=== PATIENT | female | born 1995 | race Caucasian/White ===

== ENCOUNTER → 2018-02-18 | Outpatient (CLI) | payer OTHER ==
--- NOTE | 2018-02-18 17:00 | RAD ---
Renal ultrasound. 02/18/2018 INDICATION: Chronic cystitis. COMPARISON STUDY: None available. Discussion: Sonographic evaluation of the kidneys was performed. Static images are submitted to PACS. Right kidney measures 11.5 x 4.5 x 4.7 cm. The left kidney measures 12.4 x 4.2 x 4.5 cm. No evidence of hydronephrosis, nephrolithiasis, or focal renal lesion is seen involving either kidney. The bladder is partially contracted somewhat limiting evaluation. The bladder wall appears diffusely thickened. Findings could be associated with chronic cystitis as described. Bilateral ureteral jets are noted. IMPRESSION: 1. Unremarkable sonographic appearance of the kidneys. 2. Apparent diffuse bladder wall thickening. Evaluation somewhat limited by incomplete distention. Findings are age-indeterminate but can be seen with cystitis. Correlate with clinical findings. Electronically signed by: Osman Suárez MD (02/18/2018 4:56 PM) [id number]
== END | disposition home or self-care (01) ==
LOC: US 10:50
PROVIDERS: ATTEND Urology
DX: N30.20 Other chronic cystitis without hematuria (principal)
CPT/HCPCS: 76770